=== PATIENT | male | born 1950 | race Caucasian/White ===

== ENCOUNTER → 2018-06-12 | Outpatient (CLI) | payer MEDICARE | LOC: RAD 11:37 | DX: N32.9 Bladder disorder, unspecified (principal); R31.9 Hematuria, unspecified ==

== ENCOUNTER → 2019-04-30 | Outpatient (CLI) | payer MEDICARE | LOC: RAD 11:21 | DX: Z13.6 Encounter for screening for cardiovascular disorders (principal); M79.604 Pain in right leg ==

== ENCOUNTER → 2023-03-19 | Outpatient (CLI) | payer MEDICARE, MEDICAID | LOC: RAD 09:01 | DX: R41.82 Altered mental status, unspecified (principal) ==

== ENCOUNTER → 2023-12-23 | Day surgery (SDC) | payer MEDICARE, MEDICAID ==
[~2023-12-23] MED LIST: Lidocaine PF 2% (20 MG/ML) 2 ML VIAL ONE
== END | disposition home or self-care (01) ==
LOC: MSO 08:08
DX: Z12.11 Encounter for screening for malignant neoplasm of colon (principal)
CPT/HCPCS: 00812; J2704; J7120

== ENCOUNTER → 2024-01-30 | Outpatient (CLI) | payer MEDICARE ==
[~2024-01-30] MED LIST changes: +Iohexol 300 - 100 ML VIAL IV ONE; -Lidocaine PF 2% (20 MG/ML) 2 ML VIAL ONE
== END ==
LOC: RAD 09:44
DX: C67.8 Malignant neoplasm of overlapping sites of bladder (principal); N28.89 Other specified disorders of kidney and ureter; K57.90 Diverticulosis of intestine, part unspecified, without perforation or abscess without bleeding; Z96.0 Presence of urogenital implants
CPT/HCPCS: Q9967

== ENCOUNTER → 2024-05-22 | Outpatient (CLI) | payer MEDICAID ==
[~2024-05-22] MED LIST changes: +Iodixanol-320 100 ML BOTTLE IV ONE; -Iohexol 300 - 100 ML VIAL IV ONE
== END ==
LOC: RAD 08:19
DX: K80.20 Calculus of gallbladder without cholecystitis without obstruction (principal); N32.9 Bladder disorder, unspecified
CPT/HCPCS: Q9967

== ENCOUNTER → 2024-07-07 | Outpatient (CLI) | payer MEDICARE, MEDICAID | LOC: RAD 10:01 | DX: S22.42XA Multiple fractures of ribs, left side, initial encounter for closed fracture (principal); W19.XXXA Unspecified fall, initial encounter ==

== ENCOUNTER → 2024-09-21 | Outpatient (CLI) | payer MEDICARE, MEDICAID ==
[~2024-09-21] MED LIST changes: -Iodixanol-320 100 ML BOTTLE IV ONE; +Iohexol 300 - 100 ML VIAL IV ONE; +NS 100 ML IV SCH
== END ==
LOC: RAD 08:46
DX: C67.8 Malignant neoplasm of overlapping sites of bladder (principal); C66.1 Malignant neoplasm of right ureter; K80.20 Calculus of gallbladder without cholecystitis without obstruction; M79.89 Other specified soft tissue disorders
CPT/HCPCS: Q9967